=== PATIENT | female | born 1985 | race Two or more races ===

== ENCOUNTER 2021-07-20 10:46 | Emergency (ER) | payer OTHER ==
[~2021-07-20] VITALS: Ht 172.7 cm; Wt 122.5 kg
[2021-07-20 11:28] VITALS: BP 142/88
== END 2021-07-20 13:29 | disposition home or self-care (01) ==
LOC: ER 10:46
DX: J18.9 Pneumonia, unspecified organism (principal); Z20.822 Contact with and (suspected) exposure to COVID-19; Z90.49 Acquired absence of other specified parts of digestive tract
CPT/HCPCS: 36415; 71045; 87426

== ENCOUNTER 2021-11-18 13:39 | Emergency (ER) | payer OTHER ==
[~2021-11-18] VITALS: Ht 172.7 cm; Wt 127.0 kg
[2021-11-18 14:16] LABS: Urine Bacteria FEW /hpf (None Seen); Urine Blood Negative /uL (Negative); Urine Mucus FEW (None Seen); Urine Specific Gravity 1.021 (1.001-1.035); Urine WBC <1 /hpf (0 - 5)
[2021-11-18 14:51] VITALS: BP 129/85
[2021-11-18] MEDS ORDERED: KETOROLAC TROMETH 60MG/2ML VIAL IM ONE (15:15)
[2021-11-18] MEDS ORDERED: IBUP800T27 PO (16:43)
== END 2021-11-18 17:03 | disposition home or self-care (01) ==
LOC: ER 13:39
DX: N83.202 Unspecified ovarian cyst, left side (principal); N83.201 Unspecified ovarian cyst, right side; Z32.02 Encounter for pregnancy test, result negative; Z90.49 Acquired absence of other specified parts of digestive tract
CPT/HCPCS: 76830; 76856; 81001; 81025; 96372; 99284; J1885